=== PATIENT | male | born 1955 | race Hispanic/Latino ===

== ENCOUNTER 2017-12-15 08:19 | Outpatient (CLI) | payer OTHER ==
--- NOTE | 2017-12-15 21:56 | ULT ---
RIGHT UPPER QUADRANT ULTRASOUND: 12/15/17 Ultrasonography of the right upper quadrant was performed for evaluation of pain. The liver is upper normal in size, measuring 15.8 cm in oblique sagittal length. Internally, it was u nremarkable. There was no sign of mass or dilated ducts. The gallbladder has a trace os sludge within , but no definite stones were seen. The wall is 2 mm thick. The common bile duct was a normal 5 mm w mac. The pancreas was mainly obscured by gas. The right kidney appeared normal and measured 10.5 cm in [place] gth. IMPRESSION: 1. Hepatic size upper normal. 2. Trace of sludge in the gallbladder. POS: HOME
== END 2017-12-15 08:20 | disposition home or self-care (01) ==
LOC: BURULT 08:19
PROVIDERS: ATTEND Family Medicine
DX: R10.11 Right upper quadrant pain (principal)
CPT/HCPCS: 76705